=== PATIENT | female | born 1950 | race Hispanic/Latino ===

== ENCOUNTER 2018-03-18 19:28 | Emergency (ER) | payer MEDICARE ==
[2018-03-18 20:12] LABS: APPEARANCE,URINE TURBID (CLEAR); BILIRUBIN,URINE MODERATE (NEGATIVE); COLOR,URINE ORANGE (YELLOW); GLUCOSE, URINE (UA) 100 mg/dL (NEGATIVE); KETONES,URINE NEGATIVE (NEGATIVE); LEUKOCYTE ESTERASE ,URINE LARGE (NEGATIVE); NITRATE,URINE POSITIVE (NEGATIVE); OCCULT BLOOD,URINE LARGE (NEGATIVE); PH,URINE 7.5 (5.0-8.0); PROTEIN,URINE >=300 (NEGATIVE)
[2018-03-18 20:23] LABS: BACTERIA,URINE Rare /HPF (None Seen); RBC,URINE TNTC /HPF (0-1); SQUAMOUS EPITHELIAL CELL,UR None Seen /HPF (0-2)
[2018-03-18 20:38] LABS: BASOPHILS % (AUTO) 0.6 % (0.0-5.0); HEMATOCRIT 41.7 % (36-48); MEAN CORPUSCULAR HEMOGLOBIN 33.7 pg (27.0-33.0); MEAN CORPUSCULAR HGB CONC 35.3 g/dL (32.0-36.0); MEAN CORPUSCULAR VOLUME 95.3 fL (79-99); MONOCYTES % (AUTO) 7.6 % (3.0-13.0); NEUTROPHILS % (AUTO) 56.8 % (40.0-77.0); PLATELET COUNT (AUTO) 173 K/uL (130-400); RED BLOOD CELL COUNT(AUTO) 4.38 MIL/uL (4.00-5.50); RED CELL DISTRIBUTION WIDTH 13.2 % (11.0-15.5); WHITE BLOOD COUNT (AUTO) 10.3 K/uL (4.8-10.8)
[2018-03-18] MEDS ORDERED: KETOROLAC TROMETHAMINE 15MG/ML ONE (20:38)
[2018-03-18] MEDS ORDERED: SODIUM CHLORIDE 0.9% 1000ML 1,000 ML IV ONE (20:38)
[2018-03-18] MEDS ORDERED: CEFTRIAXONE SODIUM 1 GM ONE (20:38)
[2018-03-18] MEDS ORDERED: SODIUM CHLORIDE 0.9% 50 ML IV ONE (20:38)
[2018-03-18 20:49] LABS: CREATININE 0.7 mg/dL (0.5-1.5); POTASSIUM 3.2 mmol/L (3.5-5.1)
== END 2018-03-18 23:05 | disposition home or self-care (01) ==
LOC: EDH 19:28
DX: N39.0 Urinary tract infection, site not specified (principal)
CPT/HCPCS: 36415; 80048; 81001; 85025; 87077; 87088; 87186; 96374; 96375; 99285; J0696; J1885; J7030

== ENCOUNTER → 2018-04-23 | Outpatient (CLI) | payer OTHER | END | disposition home or self-care (01) | LOC: OIH 10:38 | PROVIDERS: ATTEND Family Medicine | DX: Z13.6 Encounter for screening for cardiovascular disorders (principal) | CPT/HCPCS: 75571 ==

== ENCOUNTER 2019-02-28 10:42 | Inpatient (IN) | payer MEDICARE ==
[~2019-02-28] VITALS: Ht 157.5 cm; Wt 82.6 kg
[2019-02-28 11:27] LABS: BASOPHILS % (AUTO) 0.4 % (0.0-5.0); EOSINOPHILS % (AUTO) 1.7 % (0.0-8.0); HEMATOCRIT 41.2 % (36-48); LYMPHOCYTES % (AUTO) 41.5 % (21.0-51.0); MEAN CORPUSCULAR HEMOGLOBIN 34.4 pg (27.0-33.0); MEAN CORPUSCULAR HGB CONC 35.7 g/dL (32.0-36.0); MEAN CORPUSCULAR VOLUME 96.4 fL (79-99); MONOCYTES % (AUTO) 9.2 % (3.0-13.0); NEUTROPHILS % (AUTO) 47.2 % (40.0-77.0); PLATELET COUNT (AUTO) 153 K/uL (130-400); RED BLOOD CELL COUNT(AUTO) 4.27 MIL/uL (4.00-5.50); RED CELL DISTRIBUTION WIDTH 13.6 % (11.0-15.5); WHITE BLOOD COUNT (AUTO) 7.1 K/uL (4.8-10.8)
[2019-02-28 11:45] LABS: ALBUMIN 3.8 g/dL (3.5-5.0); BILIRUBIN,TOTAL 2.1 mg/dL (0.2-1.0); CREATININE 0.7 mg/dL (0.5-1.5)
[2019-02-28] MEDS ORDERED: CLINDAMYCIN 600 MG/D5% WATER 50 ML IV SCH (11:45)
[2019-02-28 12:09] LABS: POTASSIUM 2.7 mmol/L (3.5-5.1)
[2019-02-28 12:12] VITALS: BP 155/74
[2019-02-28] MEDS ORDERED: POTASSIUM CHLORIDE 20MEQ/100ML 100 ML IV PRN (12:30)
[2019-02-28] MEDS ORDERED: POTASSIUM CHLORIDE 10% ELIXIR 20 MEQ/15 ML UDCUP PO PRN (12:30)
[2019-02-28] MEDS ORDERED: LIDOCAINE HCL-MPF 1% 2ML VIAL IV PRN (12:30)
[2019-02-28 12:41] LABS: ALBUMIN 3.5 g/dL (3.5-5.0); BILIRUBIN,TOTAL 1.8 mg/dL (0.2-1.0); CREATININE 0.7 mg/dL (0.5-1.5); TOTAL PROTEIN, SERUM 7.3 g/dL (6.0-8.3)
[2019-02-28 12:46] LABS: POTASSIUM 2.8 mmol/L (3.5-5.1)
[2019-02-28] MEDS ORDERED: ZOSYN 3.375GM+NS 50ML 50 ML IV SCH (13:00)
--- NOTE | 2019-02-28 13:00 | NUR ---
NOTE AAOX3. ARRIVED FROM DR DONNELLY'S OFFICE WITH REDNESS TO ABDOMINAL WALL. SHE WAS ADMITTED BY HOSPITALIST GROUP. RED AREA HAS BEEN OUTLINED AT M.D. OFFICE AND IS UNCHANGED FROM EARLIER THIS AM. CONSULT WITH INFECTIOUS DISEASE MD BLOOD CULTURES HAVE BEEN COLLECTED AND ABX WILL BE STARTED. ALSO PENDING CT SCAN ABDOMEN TO R/O ANY ABSCESS. AFEBRILE ON ARRIVAL BUT REPORTS HAVING >102 FEVER AT HOME.
[2019-02-28] MEDS ORDERED: VANCOMYCIN 1.5 GM in SODIUM CHLORIDE 0.9% 250 ML IV ONE (13:15)
[2019-02-28] MEDS ORDERED: COMPOUND IV REFRIGERATED 1 EACH IVSOLN MISC PRN (14:15)
[2019-02-28] MEDS: CEFAZOLIN SODIUM 1 GM VIAL IVP SCH ×2 (16:02→19:57)
[2019-02-28] MEDS: SODIUM CHLORIDE 0.9% 1000ML 1,000 ML IV SCH (16:03)
[2019-02-28] MEDS: POTASSIUM CHLORIDE 20 MEQ ERTAB PO PRN ×2 (16:04→18:35)
[2019-02-28 16:11] VITALS: BP 165/75
--- NOTE | 2019-02-28 18:30 | NUR ---
NOTE STABLE. NO C/O PAIN. WAS STARTED ON POTASSIUM PROTOCOL FOR LEVEL 2.8 SHE WILL COMPLETE HER IV COVERAGE AND WILL GET RECHECK TONIGHT. WILL INFORM INCOMING NURSE ABOUT THIS
[2019-02-28] MEDS ORDERED: TRIA1CAP2 PO (19:31)
[2019-02-28 19:33] VITALS: BP 155/76
[2019-02-28] MEDS: FAMOTIDINE 20MG TAB 20 MG TAB PO SCH (19:57)
[2019-02-28 23:46] VITALS: BP 116/61
[2019-03-01] MEDS: VANCOMYCIN 1GM+NS 250ML 250 ML IV SCH ×2 (01:33→12:53)
[2019-03-01 04:00] VITALS: BP 116/64
[2019-03-01] MEDS: CEFAZOLIN SODIUM 1 GM VIAL IVP SCH ×3 (04:02→20:44)
[2019-03-01 04:22] LABS: HEMATOCRIT 37.4 % (36-48); MEAN CORPUSCULAR HEMOGLOBIN 34.8 pg (27.0-33.0); MEAN CORPUSCULAR HGB CONC 35.6 g/dL (32.0-36.0); MEAN CORPUSCULAR VOLUME 97.6 fL (79-99); PLATELET COUNT (AUTO) 137 K/uL (130-400); RED BLOOD CELL COUNT(AUTO) 3.84 MIL/uL (4.00-5.50); RED CELL DISTRIBUTION WIDTH 13.6 % (11.0-15.5); WHITE BLOOD COUNT (AUTO) 5.6 K/uL (4.8-10.8)
[2019-03-01 04:33] LABS: CREATININE 0.7 mg/dL (0.5-1.5); POTASSIUM 3.9 mmol/L (3.5-5.1)
[2019-03-01] MEDS: SODIUM CHLORIDE 0.9% 1000ML 1,000 ML IV SCH (06:54)
[2019-03-01 07:19] LABS: ALBUMIN 3.1 g/dL (3.5-5.0); BILIRUBIN,TOTAL 1.8 mg/dL (0.2-1.0); TOTAL PROTEIN, SERUM 6.7 g/dL (6.0-8.3)
[2019-03-01 07:56] LABS: APPEARANCE,URINE Clear (CLEAR); BILIRUBIN,URINE Negative (NEGATIVE); COLOR,URINE Dark Yellow (YELLOW); GLUCOSE, URINE (UA) Negative (NEGATIVE); KETONES,URINE Negative (NEGATIVE); LEUKOCYTE ESTERASE ,URINE Trace (NEGATIVE); NITRATE,URINE Negative (NEGATIVE); OCCULT BLOOD,URINE Negative (NEGATIVE); PROTEIN,URINE Negative (NEGATIVE); UROBILINOGEN,URINE 0.2 mg/dL (0.2-1.0)
[2019-03-01 08:02] VITALS: BP 142/87
[2019-03-01 08:13] LABS: BACTERIA,URINE Few /HPF (None Seen); MUCUS,URINE Moderate LPF (None Seen); RBC,URINE None Seen /HPF (0-1)
[2019-03-01 10:14] LABS: BILIRUBIN,DIRECT 0.3 mg/dL (0.0-0.3); BILIRUBIN,TOTAL 1.6 mg/dL (0.2-1.0)
[2019-03-01] MEDS: ENOXAPARIN SODIUM 30 MG/0.3 ML SQ SCH (10:19)
[2019-03-01] MEDS: FAMOTIDINE 20MG TAB 20 MG TAB PO SCH ×2 (10:19→20:44)
[2019-03-01 11:09] VITALS: BP 152/70
--- NOTE | 2019-03-01 16:00 | NUR ---
INITIAL MET W PT AND MARLINE TER AT BEDSIDE FOR DC PLANNING. PT IS AAOX3, INDP OF ADLS, OWNS NO DME, DRIVES, LIVES W DAUGHTER; SISTER LOBO WILL PROVIDE TRANPORT HOME, HERE FOR NAMAN [facility]; PT HAS TRANSPORT TO [facility] IF ANY IV ABX ARE TO BE PRESCRIBED; HAS NEVER HAD HOME HEALTH AND IS NOT HOME BOUND. SURG CONSULT FOR POSS INTERVENTION IS PENDING AT THIS TIME . WILL FOLLOW UP CLOSER TO DC. DCP IS HOME WITH POSSIBLE SERVICES Addendum: 03/03/19 at 2035 by MARVIN ROBERTS RN CM Amended: Links added.
[2019-03-01 16:30] VITALS: BP 136/71
[2019-03-01 19:36] VITALS: BP 164/89
[2019-03-01] MEDS: HYDROCODONE/ACETAMINOPHEN 5/325 MG TAB PO PRN (20:51)
[2019-03-01 23:49] VITALS: BP 140/68
[2019-03-02] MEDS: VANCOMYCIN 1GM+NS 250ML 250 ML IV SCH (01:09)
[2019-03-02 03:47] VITALS: BP 126/71
[2019-03-02] MEDS: CEFAZOLIN SODIUM 1 GM VIAL IVP SCH ×3 (05:12→20:19)
[2019-03-02 05:30] LABS: BASOPHILS % (AUTO) 0.6 % (0.0-5.0); EOSINOPHILS % (AUTO) 3.4 % (0.0-8.0); HEMATOCRIT 35.6 % (36-48); LYMPHOCYTES % (AUTO) 52.7 % (21.0-51.0); MEAN CORPUSCULAR HEMOGLOBIN 34.9 pg (27.0-33.0); MEAN CORPUSCULAR HGB CONC 35.8 g/dL (32.0-36.0); MEAN CORPUSCULAR VOLUME 97.3 fL (79-99); MONOCYTES % (AUTO) 10.1 % (3.0-13.0); NEUTROPHILS % (AUTO) 33.2 % (40.0-77.0); PLATELET COUNT (AUTO) 141 K/uL (130-400); RED BLOOD CELL COUNT(AUTO) 3.66 MIL/uL (4.00-5.50); RED CELL DISTRIBUTION WIDTH 13.6 % (11.0-15.5); WHITE BLOOD COUNT (AUTO) 4.9 K/uL (4.8-10.8)
[2019-03-02 05:43] LABS: ALBUMIN 2.9 g/dL (3.5-5.0); BILIRUBIN,TOTAL 1.2 mg/dL (0.2-1.0); CREATININE 0.7 mg/dL (0.5-1.5); POTASSIUM 3.7 mmol/L (3.5-5.1); TOTAL PROTEIN, SERUM 6.3 g/dL (6.0-8.3)
[2019-03-02 07:51] VITALS: BP 155/88
[2019-03-02] MEDS: ENOXAPARIN SODIUM 30 MG/0.3 ML SQ SCH (09:14)
[2019-03-02] MEDS: FAMOTIDINE 20MG TAB 20 MG TAB PO SCH ×2 (09:14→20:19)
[2019-03-02] MEDS: HYDROCODONE/ACETAMINOPHEN 5/325 MG TAB PO PRN (09:21)
[2019-03-02 11:06] VITALS: BP 165/78
[2019-03-02] MEDS: VANCOMYCIN 1.25 GM in SODIUM CHLORIDE 0.9% 250 ML IV SCH (13:53)
[2019-03-02 16:43] VITALS: BP 139/88
[2019-03-02 19:00] VITALS: BP 166/75
[2019-03-03] VITALS: BP 144/84
[2019-03-03] MEDS: VANCOMYCIN 1.25 GM in SODIUM CHLORIDE 0.9% 250 ML IV SCH ×2 (01:25→12:36)
[2019-03-03 04:00] VITALS: BP 156/72
[2019-03-03] MEDS: CEFAZOLIN SODIUM 1 GM VIAL IVP SCH ×3 (04:41→20:48)
[2019-03-03 05:12] LABS: BASOPHILS % (AUTO) 0.6 % (0.0-5.0); EOSINOPHILS % (AUTO) 3.9 % (0.0-8.0); HEMATOCRIT 38.1 % (36-48); MEAN CORPUSCULAR HEMOGLOBIN 34.5 pg (27.0-33.0); MEAN CORPUSCULAR HGB CONC 35.1 g/dL (32.0-36.0); MEAN CORPUSCULAR VOLUME 98.4 fL (79-99); MONOCYTES % (AUTO) 9.1 % (3.0-13.0); NEUTROPHILS % (AUTO) 38.4 % (40.0-77.0); NUCLEATED RED BLOOD CELLS 0.1 % (0.0-0.19); PLATELET COUNT (AUTO) 143 K/uL (130-400); RED BLOOD CELL COUNT(AUTO) 3.87 MIL/uL (4.00-5.50); RED CELL DISTRIBUTION WIDTH 13.2 % (11.0-15.5); WHITE BLOOD COUNT (AUTO) 4.8 K/uL (4.8-10.8)
[2019-03-03 05:49] LABS: CREATININE 0.7 mg/dL (0.5-1.5); POTASSIUM 3.8 mmol/L (3.5-5.1)
[2019-03-03 06:05] LABS: BILIRUBIN,TOTAL 0.8 mg/dL (0.2-1.0); TOTAL PROTEIN, SERUM 6.7 g/dL (6.0-8.3)
[2019-03-03 07:47] VITALS: BP 144/77
[2019-03-03] MEDS: FAMOTIDINE 20MG TAB 20 MG TAB PO SCH ×2 (08:42→20:47)
[2019-03-03] MEDS: ENOXAPARIN SODIUM 30 MG/0.3 ML SQ SCH (08:43)
[2019-03-03 11:35] VITALS: BP 162/93
[2019-03-03] MEDS: HYDROCODONE/ACETAMINOPHEN 5/325 MG TAB PO PRN (13:38)
[2019-03-03] MEDS ORDERED: LIDOCAINE 2%-EPI 1:200,000 20 ML VIAL IJ SCH (13:45)
[2019-03-03] MEDS ORDERED: LIDOCAINE HCL MPF 1% 5ML VIAL ONE (14:12)
[2019-03-03] MEDS ORDERED: KETOROLAC TROMETHAMINE 30MG/ML ONE (14:30)
[2019-03-03] MEDS ORDERED: KETOROLAC TROMETHAMINE 30MG/ML IV SCH (14:30)
[2019-03-03] MEDS: AMLODIPINE BESYLATE 5 MG TAB PO SCH (14:40)
[2019-03-03 16:40] VITALS: BP 164/79
[2019-03-03 20:00] VITALS: BP 143/77
[2019-03-04] VITALS (7 sets, daily range): BP systolic 128–167; BP diastolic 60–92
[2019-03-04] MEDS: VANCOMYCIN 1.25 GM in SODIUM CHLORIDE 0.9% 250 ML IV SCH ×2 (01:38→13:00)
[2019-03-04 04:36] LABS: BASOPHILS % (AUTO) 0.8 % (0.0-5.0); EOSINOPHILS % (AUTO) 4.4 % (0.0-8.0); HEMATOCRIT 37.4 % (36-48); LYMPHOCYTES % (AUTO) 50.8 % (21.0-51.0); MEAN CORPUSCULAR HEMOGLOBIN 34.2 pg (27.0-33.0); MEAN CORPUSCULAR HGB CONC 35.6 g/dL (32.0-36.0); MEAN CORPUSCULAR VOLUME 96.2 fL (79-99); MONOCYTES % (AUTO) 9.1 % (3.0-13.0); NEUTROPHILS % (AUTO) 34.9 % (40.0-77.0); PLATELET COUNT (AUTO) 161 K/uL (130-400); RED BLOOD CELL COUNT(AUTO) 3.89 MIL/uL (4.00-5.50); RED CELL DISTRIBUTION WIDTH 13.2 % (11.0-15.5); WHITE BLOOD COUNT (AUTO) 5.1 K/uL (4.8-10.8)
[2019-03-04] MEDS: CEFAZOLIN SODIUM 1 GM VIAL IVP SCH ×3 (04:42→20:24)
[2019-03-04] MEDS: HYDROCODONE/ACETAMINOPHEN 5/325 MG TAB PO PRN ×3 (05:01→20:30)
[2019-03-04 05:07] LABS: ALBUMIN 3.1 g/dL (3.5-5.0); BILIRUBIN,TOTAL 0.8 mg/dL (0.2-1.0); CREATININE 0.7 mg/dL (0.5-1.5); POTASSIUM 3.6 mmol/L (3.5-5.1); TOTAL PROTEIN, SERUM 6.9 g/dL (6.0-8.3)
[2019-03-04 05:10] LABS: HEPATITIS Bs ANTIGEN SCREEN P Negative (Negative)
[2019-03-04] MEDS: FAMOTIDINE 20MG TAB 20 MG TAB PO SCH ×2 (11:03→20:24)
[2019-03-04] MEDS: AMLODIPINE BESYLATE 5 MG TAB PO SCH ×2 (11:03→14:15)
[2019-03-04] MEDS: ENOXAPARIN SODIUM 30 MG/0.3 ML SQ SCH (11:04)
--- NOTE | 2019-03-04 15:00 | NUR ---
cm note met with patient and infomred of md orders for snf, for rehab, and wound care and possible iv antibiotics, pt in agreement, and had chosen [facility] but after speaking to son now wants [facility], choice letter signed and debbie, referral faxed to [facility] pending eval. call made to Maria C barrett and will come eval today. also per Dr gunter, states will await for cultures.
[2019-03-05] MEDS: VANCOMYCIN 1.25 GM in SODIUM CHLORIDE 0.9% 250 ML IV SCH ×2 (02:29→13:06)
[2019-03-05 03:21] VITALS: BP 138/67
[2019-03-05] MEDS: CEFAZOLIN SODIUM 1 GM VIAL IVP SCH ×3 (05:04→21:46)
[2019-03-05 05:06] LABS: BASOPHILS % (AUTO) 0.7 % (0.0-5.0); EOSINOPHILS % (AUTO) 3.5 % (0.0-8.0); HEMATOCRIT 38.6 % (36-48); LYMPHOCYTES % (AUTO) 48.5 % (21.0-51.0); MEAN CORPUSCULAR HEMOGLOBIN 34.2 pg (27.0-33.0); MEAN CORPUSCULAR HGB CONC 34.9 g/dL (32.0-36.0); MEAN CORPUSCULAR VOLUME 98.1 fL (79-99); MONOCYTES % (AUTO) 9.8 % (3.0-13.0); NEUTROPHILS % (AUTO) 37.5 % (40.0-77.0); NUCLEATED RED BLOOD CELLS 0.1 % (0.0-0.19); PLATELET COUNT (AUTO) 159 K/uL (130-400); RED BLOOD CELL COUNT(AUTO) 3.94 MIL/uL (4.00-5.50); RED CELL DISTRIBUTION WIDTH 13.4 % (11.0-15.5); WHITE BLOOD COUNT (AUTO) 5.8 K/uL (4.8-10.8)
[2019-03-05 05:16] LABS: CREATININE 0.7 mg/dL (0.5-1.5); POTASSIUM 3.5 mmol/L (3.5-5.1)
[2019-03-05 08:00] VITALS: BP 140/65
[2019-03-05] MEDS: POTASSIUM CHLORIDE 20 MEQ ERTAB PO PRN ×2 (08:47→13:05)
[2019-03-05] MEDS: AMLODIPINE BESYLATE 5 MG TAB PO SCH ×2 (08:47→13:06)
[2019-03-05] MEDS: ENOXAPARIN SODIUM 30 MG/0.3 ML SQ SCH (08:47)
[2019-03-05] MEDS: FAMOTIDINE 20MG TAB 20 MG TAB PO SCH ×2 (08:47→21:46)
[2019-03-05 11:24] VITALS: BP 150/79
[2019-03-05] MEDS: HYDROCODONE/ACETAMINOPHEN 5/325 MG TAB PO PRN (15:13)
[2019-03-05 16:00] VITALS: BP 124/73
[2019-03-05 20:00] VITALS: BP 145/71
[2019-03-05 23:28] VITALS: BP 115/65
[2019-03-06] MEDS: VANCOMYCIN 1.25 GM in SODIUM CHLORIDE 0.9% 250 ML IV SCH ×2 (01:05→13:00)
[2019-03-06 03:45] VITALS: BP 111/58
[2019-03-06] MEDS: CEFAZOLIN SODIUM 1 GM VIAL IVP SCH (04:59)
[2019-03-06 05:15] LABS: BASOPHILS % (AUTO) 0.8 % (0.0-5.0); EOSINOPHILS % (AUTO) 4.3 % (0.0-8.0); HEMATOCRIT 37.8 % (36-48); LYMPHOCYTES % (AUTO) 48.5 % (21.0-51.0); MEAN CORPUSCULAR HGB CONC 35.2 g/dL (32.0-36.0); MEAN CORPUSCULAR VOLUME 96.7 fL (79-99); MONOCYTES % (AUTO) 11.5 % (3.0-13.0); NEUTROPHILS % (AUTO) 34.9 % (40.0-77.0); NUCLEATED RED BLOOD CELLS 0.1 % (0.0-0.19); PLATELET COUNT (AUTO) 154 K/uL (130-400); RED BLOOD CELL COUNT(AUTO) 3.91 MIL/uL (4.00-5.50); RED CELL DISTRIBUTION WIDTH 13.7 % (11.0-15.5); WHITE BLOOD COUNT (AUTO) 5.2 K/uL (4.8-10.8)
[2019-03-06 05:22] LABS: CREATININE 0.7 mg/dL (0.5-1.5); POTASSIUM 3.8 mmol/L (3.5-5.1)
[2019-03-06 07:34] VITALS: BP 127/68
[2019-03-06] MEDS: AMLODIPINE BESYLATE 5 MG TAB PO SCH (09:09)
[2019-03-06] MEDS: FAMOTIDINE 20MG TAB 20 MG TAB PO SCH (09:10)
[2019-03-06] MEDS: ENOXAPARIN SODIUM 30 MG/0.3 ML SQ SCH (09:11)
[2019-03-06] MEDS: HYDROCODONE/ACETAMINOPHEN 5/325 MG TAB PO PRN (09:15)
[2019-03-06 11:22] VITALS: BP 127/73
[2019-03-06] MEDS ORDERED: DOXYCYCLINE HYCLATE 100 MG TABLET PO SCH (13:45)
--- NOTE | 2019-03-06 13:49 | NUR ---
REPORT CALLED IN TO [facility] REPORT GIVEN TO RAMIN WATKINS AT [facility]. WAS INFORMED THAT THE SALES SERVICE PROFESSIONAL FOR PICKUP WILL NOT BE ARRIVING UNTIL 4PM. MADE GABRIELA WATKINSTHIRD MILLER AND DAISY WATKINS CHARGE NURSE AWARE OF THE SITUATION.
[2019-03-06] MEDS ORDERED: FLU VACC QS2019-20 36MOS UP/PF 60 MCG/0.5 ML ML IM ONE (14:00)
--- NOTE | 2019-03-06 16:30 | NUR ---
[facility] CALLED CALLED [facility] AND REPORTED TO MANUELITO WATKINS THAT PATIENT HAS RECEIVED FIRST DOSE OF DOXCYCLINE ANTIBIOTIC AT 1330 SINCE RIDE WOULD BE HERE AT 4PM. NURSE MANUELITO SAID THAT THE BASS FISHER WOULD BE COMING TO [facility] PATIENT SOON.
--- NOTE | 2019-03-06 17:19 | NUR ---
[facility] CALLED [facility] FOR UPDATE ON BAG LINER TIME. SPOKE TO MANUELITO AND SAID STORE GROCERY MERCHANDISER WILL BE ON THE WAY SHORTLY.
--- NOTE | 2019-03-06 18:19 | NUR ---
cm note spoke to Maria C barrett at [facility], and informed that we are pending for pt to be picked up, states that they do not have van transport availability yet and that they will make arrangements for pt to be picked up by EMS for transport, and [facility] will be responsible for that transport. updated charge nurse Lori.
--- NOTE | 2019-03-06 18:44 | NUR ---
DISCHARGE FELT HOOKER GABRIELA WATKINS SPOKE TO [facility] AND [facility] F[facility] HOOKER DIRECTOR KATRIN WATKINS AND HAVE APPROVED FOR PATIENT TO BE ALLOWED TO BE TAKEN TO [facility] BY HER SISTER. TRANSPORTED PATIENT VIA WHEELCHAIR AND HELPED TO GET IN VEHICLE. DISCHARGE INSTRUCTIONS GIVEN TO PATIENT. [facility] AWARE THAT PATIENT WILL BE ARRIVING BY PRIVATE VEHICLE.
== END 2019-03-06 18:54 | DRG 854 ==
LOC: EDH 10:42 → EDHIP 11:00 → 4BH 11:36
PROVIDERS: ADMIT Internal Medicine; ATTEND Internal Medicine
PROC: 5A09357 Assistance with Respiratory Ventilation, Less than 24 Consecutive Hours, Continuous Positive Airway Pressure (ICD-10-PCS; 2019-02-28)
PROC: 5A09357 Assistance with Respiratory Ventilation, Less than 24 Consecutive Hours, Continuous Positive Airway Pressure (ICD-10-PCS; 2019-03-01)
PROC: 0W9F0ZZ Drainage of Abdominal Wall, Open Approach (ICD-10-PCS; principal; 2019-03-03)
PROC: 3E02340 Introduction of Influenza Vaccine into Muscle, Percutaneous Approach (ICD-10-PCS; 2019-03-03)
PROC: 5A09357 Assistance with Respiratory Ventilation, Less than 24 Consecutive Hours, Continuous Positive Airway Pressure (ICD-10-PCS; 2019-03-03)
PROC: 5A09357 Assistance with Respiratory Ventilation, Less than 24 Consecutive Hours, Continuous Positive Airway Pressure (ICD-10-PCS; 2019-03-04)
PROC: 5A09357 Assistance with Respiratory Ventilation, Less than 24 Consecutive Hours, Continuous Positive Airway Pressure (ICD-10-PCS; 2019-03-05)
DX: A41.9 Sepsis, unspecified organism (principal); L03.311 Cellulitis of abdominal wall; E87.6 Hypokalemia; B95.62 Methicillin resistant Staphylococcus aureus infection as the cause of diseases classified elsewhere; E66.9 Obesity, unspecified; I10 Essential (primary) hypertension; K59.00 Constipation, unspecified; K76.0 Fatty (change of) liver, not elsewhere classified; K76.9 Liver disease, unspecified; K42.9 Umbilical hernia without obstruction or gangrene; S30.821A Blister (nonthermal) of abdominal wall, initial encounter; Y93.89 Activity, other specified; Y92.89 Other specified places as the place of occurrence of the external cause; Y99.8 Other external cause status; Z68.33 Body mass index [BMI] 33.0-33.9, adult; Z23 Encounter for immunization
CPT/HCPCS: 10060; 36415; 74150; 76700; 80048; 80053; 80061; 80202; 81001; 82172; 82247; 82248; 82977; 83010; 83516; 83883; 84132; 84460; 85025; 85027; 86038; 86215; 86235; 86255; 86706; 86717; 87040; 87070; 87076; 87077; 87088; 87186; 87340; 87350; 87520; A6266; G0378; J0690; J1650; J1885; J3370; J3480; J3490; J7030; Q2035

== ENCOUNTER → 2019-05-25 | Outpatient (CLI) | payer MEDICARE ==
[~2019-05-25] MED LIST: TRIA1CAP2 PO
== END | disposition home or self-care (01) ==
LOC: RAH 09:35
PROVIDERS: ATTEND Family Medicine
DX: Z12.31 Encounter for screening mammogram for malignant neoplasm of breast (principal)
CPT/HCPCS: 77067

== ENCOUNTER → 2020-06-25 | Outpatient (CLI) | payer MEDICARE ==
[~2020-06-25] MED LIST changes: +IOHEXOL-350 75 ML VIAL IV ONE
== END | disposition home or self-care (01) ==
LOC: RAH 08:39
PROVIDERS: ATTEND Internal Medicine
DX: K76.0 Fatty (change of) liver, not elsewhere classified (principal); R77.2 Abnormality of alphafetoprotein; K76.9 Liver disease, unspecified
CPT/HCPCS: 74170; Q9967

== ENCOUNTER → 2021-07-10 | Outpatient (CLI) | payer MEDICARE ==
[~2021-07-10] MED LIST changes: -IOHEXOL-350 75 ML VIAL IV ONE
== END | disposition home or self-care (01) ==
LOC: RAH 08:36
PROVIDERS: ATTEND Physician Assistant Medical
DX: Z12.31 Encounter for screening mammogram for malignant neoplasm of breast (principal)
CPT/HCPCS: 77067

== ENCOUNTER → 2022-01-24 | Outpatient (CLI) | payer MEDICARE | END | disposition home or self-care (01) | LOC: RAH 12:39 | PROVIDERS: ATTEND Family Medicine | DX: M51.36 Other intervertebral disc degeneration, lumbar region (principal); M54.16 Radiculopathy, lumbar region; M41.9 Scoliosis, unspecified; M48.061 Spinal stenosis, lumbar region without neurogenic claudication; M51.26 Other intervertebral disc displacement, lumbar region | CPT/HCPCS: 72148 ==

== ENCOUNTER → 2022-09-11 | Outpatient (CLI) | payer MEDICARE | END | disposition home or self-care (01) | LOC: RAH 10:51 | PROVIDERS: ATTEND Internal Medicine | DX: Z12.31 Encounter for screening mammogram for malignant neoplasm of breast (principal) | CPT/HCPCS: 77067 ==

== ENCOUNTER → 2023-07-02 | Outpatient (CLI) | payer MEDICARE | END | disposition home or self-care (01) | LOC: RAH 15:25 | PROVIDERS: ATTEND Nurse Practitioner | DX: M75.102 Unspecified rotator cuff tear or rupture of left shoulder, not specified as traumatic (principal); M19.012 Primary osteoarthritis, left shoulder | CPT/HCPCS: 73221 ==

== ENCOUNTER → 2023-08-25 | Outpatient (CLI) | payer MEDICARE | END | disposition home or self-care (01) | LOC: RAH 12:42 | PROVIDERS: ATTEND Physical Medicine & Rehabilitation | DX: M47.26 Other spondylosis with radiculopathy, lumbar region (principal); M51.16 Intervertebral disc disorders with radiculopathy, lumbar region; M48.07 Spinal stenosis, lumbosacral region; M54.51 Vertebrogenic low back pain | CPT/HCPCS: 72148 ==

== ENCOUNTER → 2023-09-14 | Outpatient (CLI) | payer MEDICARE | END | disposition home or self-care (01) | LOC: RAH 11:03 | PROVIDERS: ATTEND Internal Medicine | DX: Z12.31 Encounter for screening mammogram for malignant neoplasm of breast (principal); R92.323 Mammographic fibroglandular density, bilateral breasts | CPT/HCPCS: 77067 ==

== ENCOUNTER → 2023-11-11 | Outpatient (CLI) | payer OTHER | END | disposition home or self-care (01) | LOC: RAH 09:25 | PROVIDERS: ATTEND Internal Medicine | DX: Z13.6 Encounter for screening for cardiovascular disorders (principal) | CPT/HCPCS: 75571 ==

== ENCOUNTER → 2023-12-02 | Outpatient (CLI) | payer MEDICARE | END | disposition home or self-care (01) | LOC: RAH 09:03 | PROVIDERS: ATTEND Internal Medicine | DX: S83.242A Other tear of medial meniscus, current injury, left knee, initial encounter (principal); M25.462 Effusion, left knee; M71.22 Synovial cyst of popliteal space [Baker], left knee; M23.92 Unspecified internal derangement of left knee; X58.XXXA Exposure to other specified factors, initial encounter; Y93.89 Activity, other specified; Y92.89 Other specified places as the place of occurrence of the external cause; Y99.8 Other external cause status | CPT/HCPCS: 73721 ==

== ENCOUNTER → 2024-04-01 | Outpatient (CLI) | payer MEDICARE ==
--- NOTE | 2024-04-01 12:21 | HMCIMG ---
EXAM: LUMBAR SPINE 2-3VWS REASON: LUMBAR STENOSIS, LEG PAIN. COMPARISON: None. TECHNIQUE: 3 views of the lumbar spine were obtained. FINDINGS: There are bilateral pedicle screws at L3, L4 and L5. Disc interspace stabilizers are present at L3-4 and L4-5. There is moderate interspace narrowing at L5-S1. Remaining interspaces appear preserved. Surrounding soft tissues appear unremarkable. Soft tissues appear unremarkable. IMPRESSION: 1. Postop changes with hardware L3-L5, hardware appears intact. 2. No acute finding.
== END | disposition home or self-care (01) ==
LOC: OIH 11:28
PROVIDERS: ATTEND Internal Medicine
DX: M48.07 Spinal stenosis, lumbosacral region (principal); M79.606 Pain in leg, unspecified
CPT/HCPCS: 72100

== ENCOUNTER → 2024-07-01 | Outpatient (CLI) | payer MEDICARE ==
--- NOTE | 2024-07-01 12:51 | HMCIMG ---
LUMBAR SPINE 2-3VWS HISTORY: Lumbar spine stenosis COMPARISON: None FINDINGS: 2 images of lumbar spine were obtained. Orthopedic fixation plates and screws are seen traversing the L3, L4 and L5 levels with disc fusion. There are degenerative changes with lumbar spine spondylosis. There is straightening of normal lordotic curvature which may be related to muscle spasm or positioning. No loss of vertebral height is seen. No fracture or dislocation is seen. Degenerative changes are seen. IMPRESSION: 1. No fracture is seen. DJD with lumbar spine spondylosis. Postop changes.
== END | disposition home or self-care (01) ==
LOC: RAH 09:04
PROVIDERS: ATTEND Neurological Surgery
DX: M51.16 Intervertebral disc disorders with radiculopathy, lumbar region (principal); M48.062 Spinal stenosis, lumbar region with neurogenic claudication; M47.26 Other spondylosis with radiculopathy, lumbar region
CPT/HCPCS: 72100

== ENCOUNTER → 2024-10-03 | Outpatient (CLI) | payer MEDICARE ==
--- NOTE | 2024-10-03 10:38 | HMCIMG ---
Exam Type: MAMMO SCREENING BILATERAL Clinical Information: ANNUAL SCREENING Comparison: September 14, 2023 Technique: Mammogram with CAD was performed with CC and MLO projections. CAD shows no worrisome regions. FINDINGS: The breasts are heterogeneously dense, which may obscure small masses. No dominant mass or suspicious microcalcification identified. There is no nipple retraction or skin thickening. Benign-appearing calcifications are seen. CAD shows no worrisome regions. IMPRESSION: 1. No mammographic signs of malignancy. 2. Routine follow-up recommended. CATEGORY 2: BENIGN FINDINGS Note: A negative x-ray should not delay biopsy if a dominant or clinically suspicious mass is present, since 8-10% of cancers are not identified by mammography. Dense breasts may obscure an underlying neoplasm.
== END | disposition home or self-care (01) ==
LOC: RAH 10:05
PROVIDERS: ATTEND Internal Medicine
DX: Z12.31 Encounter for screening mammogram for malignant neoplasm of breast (principal); R92.333 Mammographic heterogeneous density, bilateral breasts
CPT/HCPCS: 77067

== ENCOUNTER → 2025-03-30 | Outpatient (CLI) | payer MEDICARE ==
--- NOTE | 2025-03-30 12:40 | HMCIMG ---
EXAM: CR LUMBAR SPINE, 2 VIEWS CLINICAL HISTORY: Radiculopathy. COMPARISON: None provided TECHNIQUE: AP and lateral radiographs of the lumbar spine were obtained. FINDINGS: Vertebrae: Intramedullary nailing with screw fixation is noted in bodies of L3, L4 and L5. There is satisfactory alignment of the metallic hardware. No evidence of loosening or dislocation is noted. Diffuse osteopenia is noted. No fracture. Vertebral alignment: No spondylolisthesis. Discs/Degenerative Changes: Changes of lumbar spondylosis are noted. Disc spaces are reduced. Included abdomen: No pathologic calcifications observed. Included bowel gas pattern is non-obstructive. IMPRESSION: 1. Intramedullary nailing with screw fixation in bodies of L3, L4 and L5 with satisfactory alignment. No evidence of loosening or dislocation. 2. Changes of lumbar spondylosis. /[place]
== END | disposition home or self-care (01) ==
LOC: RAH 08:27
PROVIDERS: ATTEND Neurological Surgery
DX: M47.26 Other spondylosis with radiculopathy, lumbar region (principal); M85.88 Other specified disorders of bone density and structure, other site; M43.26 Fusion of spine, lumbar region
CPT/HCPCS: 72100